=== PATIENT | male | born 1985 | race Caucasian/White ===

== ENCOUNTER 2019-04-21 02:50 | Emergency (ER) | payer OTHER ==
[~2019-04-21] VITALS: Ht 180.3 cm; Wt 113.4 kg
[2019-04-21 03:01] VITALS: BP 139/91
--- NOTE | 2019-04-21 03:09 | ER.PDOC ---
General Chief Complaint: Requesting Medical Care Stated Complaint: ABD PAIN, HBP Time seen by MD: 03:02 Source: patient Exam Limitations: no limitations History of Present Illness Initial Comments Patient c/o epigastric abdominal pain radiating across to right side of abdomen, up into chest and jaws. Onset of pain just QUALITY DIRECTOR. + n/v. No SOB Timing/Duration: 1/2 hour Severity/Quality: moderate, aching Radiation: chest Associated Symptoms: chest pain, nausea/vomiting Allergies: Coded Allergies: No Known Allergies (Unverified , 04/21/19) Vital Signs First Vital Signs Date Time Temp Pulse Resp B/P (MAP) Pulse Ox O2 Delivery O2 Flow Rate FiO2 04/21/19 03:01 98.1 85 16 96 04/21/19 03:01 139/91 (107) Room Air Last Vital Signs Date Time Temp Pulse Resp B/P (MAP) Pulse Ox O2 Delivery O2 Flow Rate FiO2 04/21/19 03:01 98.1 85 16 04/21/19 03:01 139/91 (107) 96 Room Air Past Medical History Medical History: congestive heart failure (states he drank heavily in his 20's resulting in CHF; original EF 20's; now EF 45-50), hypertension Surgical History: other (ortho sx UE) Family History Significant Family History: heart disease (father had ND in his 40's) Social History Drug Use: none Constitutional: no symptoms reported EENTM: no symptoms reported Respiratory: no symptoms reported Cardiovascular: chest pain Gastrointestinal: abdominal pain, nausea, vomiting Musculoskeletal: no symptoms reported Skin: no symptoms reported Physical Exam General Appearance: No Apparent Distress, WD/WN, Obese Respiratory: lungs clear, normal breath sounds, no respiratory distress, no accessory muscle use Cardiovascular: Regular Rate, Rhythm, No Edema Gastrointestinal: Normal Bowel Sounds Extremities: Non-Tender, Normal Inspection Neurologic/Psychiatric: Alert, Normal Mood/Affect, Oriented x 3 Skin: Normal Color, Warm/Dry Lymphatic: No Adenopathy Results/Orders Results/Orders Orders - PRIMO ARIAS DO Cbc With Auto Diff (04/21/19 03:12) Comprehensive Metabolic Panel (04/21/19 03:12) Creatine Kinase (04/21/19 03:12) Creatine Kinase Mb (04/21/19 03:12) Troponin I (04/21/19 03:12) Probnp B-Type [employer] Engineer (04/21/19 03:12) PT (04/21/19 03:12) Partial Thromboplastin Time. (04/21/19 03:12) Helicobacter Pylori (04/21/19 03:12) D-Dimer (04/21/19 03:12) Xr Chest 1v (04/21/19 03:12) Ekg-Routine (04/21/19 03:12) Aspirin (Aspirin) (04/21/19 03:30) Saline Lock (04/21/19 03:12) Ketorolac Tromethamine (Toradol) (04/21/19 04:30) Ketorolac Tromethamine (Toradol) (04/21/19 04:26) Vital Signs Date Time Temp Pulse Resp B/P (MAP) Pulse Ox O2 Delivery O2 Flow Rate FiO2 04/21/19 03:01 98.1 85 16 04/21/19 03:01 98.1 85 16 139/91 (107) 96 Room Air 04/21/19 03:01 98.1 85 16 96 Administered Medications Medications (Trade) Dose Ordered Sig/Melinda Route PRN Reason Start Time Stop Time Status Last Admin Dose Admin Aspirin (Aspirin) 325 mg DAILY PRN PO CHEST PAIN 04/21/19 03:30 05/21/19 03:29 UNV 04/21/19 03:34 325 MG Ketorolac Tromethamine (Toradol) 30 mg STAT ONCE IV 04/21/19 04:30 04/21/19 04:31 DC 04/21/19 04:29 30 MG Laboratory Tests Test 04/21/19 03:23 White Blood Count 9.7 10^3/uL (4.5-11.0) Red Blood Count 5.24 10^6/uL (4.50-5.90) Hemoglobin 15.1 g/dL (13.9-16.3) Hematocrit 43.2 % (37.0-53.0) Mean Corpuscular Volume 82.4 fL (78-100) Mean Corpuscular Hemoglobin 28.8 pg (26-34) Mean Corpuscular Hemoglobin Concent 35.0 g/dL (33-37) Red Cell Distribution Width 12.7 % (11.5-14.5) Platelet Count 245 10^3/uL (150-400) Mean Platelet Volume 9.6 fL (7.8-11.0) Neutrophils (%) (Auto) 53.1 % (41.0-85.0) Lymphocytes (%) (Auto) 32.9 % (24.0-44.0) Monocytes (%) (Auto) 7.0 % (5.0-12.0) Neutrophils # (Auto) 5.2 10^3/uL (1.8-7.7) Lymphocytes # (Auto) 3.2 10^3/uL (1.0-4.8) Monocytes # (Auto) 0.7 10^3/uL (0.3-0.8) Absolute Immature Granulocyte (auto 0.05 10^3 u/L (0-2) Absolute Eosinophils (auto) 0.6 10^3/uL (0.0-0.2) H Immature Granulocytes % 0.50 % (0.00-0.50) Eosinophils % 6.0 % (0.0-5.0) H Basophils % 0.5 % (0.0-0.2) H Basophils # 0.1 10^3/uL (0.0-0.1) Prothrombin Time 9.4 SEC (9.4-11.5) Prothrombin Time INR (Non-Therap) 0.9 Activated Partial Thromboplast Time 24.5 SEC (24.67-30.72) D-Dimer 0.37 mg/L (0.19-0.49) Sodium Level 137 mmol/L (132-145) Potassium Level 3.6 mmol/L (3.6-5.2) Chloride Level 99.0 mmol/L (96-109) Carbon Dioxide Level 28.8 mmol/L (20.0-32) Anion Gap 12.8 Blood Urea Nitrogen 15 mg/dL (7-18) Creatinine 0.97 mg/dL (0.59-1.40) Estimated GFR () 108.5 (>/=60) Est GFR (CKD-EPI)(Non-Afr Malagasy) 89.7 (>/=60) BUN/Creatinine Ratio 15.0 Glucose Level 104 mg/dL (70-110) Calcium Level 9.2 mg/dL (8.4-10.5) Total Bilirubin 0.2 mg/dL (0.2-1.0) Aspartate Amino Transferase (AST) 34 U/L (0-35) Alanine Aminotransferase (ALT) 88 U/L (12-78) H Alkaline Phosphatase 85 U/L (50-136) Total Creatine Kinase 104 U/L (39-308) Creatine Kinase MB 0.9 ng/mL (0.5-3.6) Troponin I < 0.02 ng/mL (0.00-0.05) Pro-B-Type Natriuretic Peptide 5 pg/mL (0-125) Total Protein 7.5 g/dL (6.4-8.2) Albumin 3.9 g/dL (3.4-5.0) Globulin 3.6 Helicobacter pylori Screen NEGATIVE (NEGATIVE) Progress Progress all cardiac markers have returned normal; patient's description of symptoms more mimics gallbladder (food aggrevates, RUQ focus, nausea) EKG/XRAY/CT/US EKG: NSR, no ST T wave changes XRAY: chest (no edema, infiltrate or cardiomegaly seen) Course Vitals & review Data Vital Sign - Last 24 Hours 04/21/19 04/21/19 04/21/19 03:01 03:01 03:01 Temp 98.1 98.1 98.1 Pulse 85 85 85 Resp 16 16 16 B/P (MAP) 139/91 (107) Pulse Ox 96 96 O2 Delivery Room Air Laboratory Tests Test 04/21/19 03:23 White Blood Count 9.7 10^3/uL Red Blood Count 5.24 10^6/uL Hemoglobin 15.1 g/dL Hematocrit 43.2 % Mean Corpuscular Volume 82.4 fL Mean Corpuscular Hemoglobin 28.8 pg Mean Corpuscular Hemoglobin Concent 35.0 g/dL Red Cell Distribution Width 12.7 % Platelet Count 245 10^3/uL Mean Platelet Volume 9.6 fL Neutrophils (%) (Auto) 53.1 % Lymphocytes (%) (Auto) 32.9 % Monocytes (%) (Auto) 7.0 % Neutrophils # (Auto) 5.2 10^3/uL Lymphocytes # (Auto) 3.2 10^3/uL Monocytes # (Auto) 0.7 10^3/uL Absolute Immature Granulocyte (auto 0.05 10^3 u/L Absolute Eosinophils (auto) 0.6 10^3/uL Immature Granulocytes % 0.50 % Eosinophils % 6.0 % Basophils % 0.5 % Basophils # 0.1 10^3/uL Prothrombin Time 9.4 SEC Prothrombin Time INR (Non-Therap) 0.9 Activated Partial Thromboplast Time 24.5 SEC D-Dimer 0.37 mg/L Sodium Level 137 mmol/L Potassium Level 3.6 mmol/L Chloride Level 99.0 mmol/L Carbon Dioxide Level 28.8 mmol/L Anion Gap 12.8 Blood Urea Nitrogen 15 mg/dL Creatinine 0.97 mg/dL Estimated GFR () 108.5 Est GFR (CKD-EPI)(Non-Afr Malagasy) 89.7 BUN/Creatinine Ratio 15.0 Glucose Level 104 mg/dL Calcium Level 9.2 mg/dL Total Bilirubin 0.2 mg/dL Aspartate Amino Transf (AST/SGOT) 34 U/L Alanine Aminotransferase (ALT/SGPT) 88 U/L Alkaline Phosphatase 85 U/L Total Creatine Kinase 104 U/L Creatine Kinase MB 0.9 ng/mL Troponin I < 0.02 ng/mL Pro-B-Type Natriuretic Peptide 5 pg/mL Total Protein 7.5 g/dL Albumin 3.9 g/dL Globulin 3.6 Helicobacter pylori Screen NEGATIVE Current Medications Medications (Trade) Dose Ordered Sig/Melinda PRN Reason Start Time Stop Time Status Last Admin Aspirin (Aspirin) 325 mg DAILY PRN CHEST PAIN 04/21/19 03:30 05/21/19 03:29 UNV 04/21/19 03:34 Vital Sign - Last 24 Hours 04/21/19 04/21/19 04/21/19 03:01 03:01 03:01 Temp 98.1 98.1 98.1 Pulse 85 85 85 Resp 16 16 16 B/P (MAP) 139/91 (107) Pulse Ox 96 96 O2 Delivery Room Air Laboratory Tests Test 04/21/19 03:23 White Blood Count 9.7 10^3/uL Red Blood Count 5.24 10^6/uL Hemoglobin 15.1 g/dL Hematocrit 43.2 % Mean Corpuscular Volume 82.4 fL Mean Corpuscular Hemoglobin 28.8 pg Mean Corpuscular Hemoglobin Concent 35.0 g/dL Red Cell Distribution Width 12.7 % Platelet Count 245 10^3/uL Mean Platelet Volume 9.6 fL Neutrophils (%) (Auto) 53.1 % Lymphocytes (%) (Auto) 32.9 % Monocytes (%) (Auto) 7.0 % Neutrophils # (Auto) 5.2 10^3/uL Lymphocytes # (Auto) 3.2 10^3/uL Monocytes # (Auto) 0.7 10^3/uL Absolute Immature Granulocyte (auto 0.05 10^3 u/L Absolute Eosinophils (auto) 0.6 10^3/uL Immature Granulocytes % 0.50 % Eosinophils % 6.0 % Basophils % 0.5 % Basophils # 0.1 10^3/uL Prothrombin Time 9.4 SEC Prothrombin Time INR (Non-Therap) 0.9 Activated Partial Thromboplast Time 24.5 SEC D-Dimer 0.37 mg/L Sodium Level 137 mmol/L Potassium Level 3.6 mmol/L Chloride Level 99.0 mmol/L Carbon Dioxide Level 28.8 mmol/L Anion Gap 12.8 Blood Urea Nitrogen 15 mg/dL Creatinine 0.97 mg/dL Estimated GFR () 108.5 Est GFR (CKD-EPI)(Non-Afr Malagasy) 89.7 BUN/Creatinine Ratio 15.0 Glucose Level 104 mg/dL Calcium Level 9.2 mg/dL Total Bilirubin 0.2 mg/dL Aspartate Amino Transf (AST/SGOT) 34 U/L Alanine Aminotransferase (ALT/SGPT) 88 U/L Alkaline Phosphatase 85 U/L Total Creatine Kinase 104 U/L Creatine Kinase MB 0.9 ng/mL Troponin I < 0.02 ng/mL Pro-B-Type Natriuretic Peptide 5 pg/mL Total Protein 7.5 g/dL Albumin 3.9 g/dL Globulin 3.6 Helicobacter pylori Screen NEGATIVE Current Medications Medications (Trade) Dose Ordered Sig/Melinda PRN Reason Start Time Stop Time Status Last Admin Aspirin (Aspirin) 325 mg DAILY PRN CHEST PAIN 04/21/19 03:30 05/21/19 03:29 UNV 04/21/19 03:34 Departure Time of Disposition: 04:40 Disposition: 01 HOME, SELF-CARE Impression: Primary Impression: Abdominal pain Condition: Improved Patient Instructions: Abdominal Pain Referrals: PCP,UNKNOWN (PCP) PRIMARY CARE PROVIDER Additional Instructions: Follow up with your doctor as scheduled for EGD and other studies. Avoid spicy or greasy/fatty foods. Return to ER if you have chest pain, difficulty breathing or any other concerns. Of work today, 04/21/2019. Duration or Time Spent with Pa: 1 hour 45 min Return to Work/School Can a patient return to work?: Yes Problem Qualifiers Primary Impression: Abdominal pain Abdominal location: right upper quadrant Qualified Codes: R10.11 - Right upper quadrant pain PRIMO ARIAS DO Apr 21, 2019 03:09
--- NOTE | 2019-04-21 03:17 | PCM.EKG ---
[facility] Test Date: 2019-04-21 Test Time: 03:02:59 Pat Name: LAYLA CRUZ [facility]: [id number] Room: Gender: M Discharge Coordinator: DARÍO : 1985 Requested By: PRIMO DOUGLAS Order Number: [id number] Reading MD: Mary Lou Douglas Measurements Intervals [place] Rate: 89 P: 9 DE: 178 QRS: 4 QRSD: 103 T: 11 QT: 355 QTc: 432 Interpretive Statements Sinus rhythm Borderline T abnormalities, anterior leads Baseline wander in lead(s) V1,V2,V3,V4,V5,V6 No previous ECG available for comparison Electronically Signed On 04-24-2019 6:15:56 FABRIC STRETCHER by Mary Lou Douglas Please click the below link to view image of tracing.
[2019-04-21 03:26] LABS: BASOPHIL # 0.1 10^3/uL (0.0-0.1); BASOPHIL % 0.5 % (0.0-0.2); EOSINOPHIL # 0.6 10^3/uL (0.0-0.2); LYMPHOCYTES # 3.2 10^3/uL (1.0-4.8); LYMPHOCYTES % 32.9 % (24.0-44.0); MEAN CORP HGB 28.8 pg (26-34); MONOCYTES # 0.7 10^3/uL (0.3-0.8); NEUTROPHIL # 5.2 10^3/uL (1.8-7.7); NEUTROPHILS % 53.1 % (41.0-85.0); RED CELL DISTRIBUTION WIDTH 12.7 % (11.5-14.5)
[2019-04-21] MEDS ORDERED: ASPIRIN ONE (03:28)
[2019-04-21] MEDS ORDERED: ASPIRIN PO PRN (03:30)
--- NOTE | 2019-04-21 03:54 | DIREP ---
PROCEDURE:CHEST 1 VIEW COMPARISON:None. INDICATIONS:chest pain FINDINGS: LUNGS/PLEURA:No significant pulmonary parenchymal abnormalities. No effusions. VASCULATURE:Normal. Unremarkable pulmonary vasculature. CARDIAC:Normal. No cardiac silhouette abnormality or cardiomegaly. MEDIASTINUM:Normal. No visible mass or adenopathy. BONES:Normal. No fracture or visible bony lesion. OTHER:Negative. CONCLUSION:No infiltrate, no effusion, no pneumothorax. Dictated by: Ekaterina Germain MD on 04/21/2019 at 03:52 AM
[2019-04-21 04:08] LABS: ALANINE AMINOTRANSFERASE(ML) 88 U/L (12-78); ALKALINE PHOSPHATASE 85 U/L (50-136); ASPARTATE AMINO TRANSFERASE 34 U/L (0-35); CALCIUM 9.2 mg/dL (8.4-10.5); CARBON DIOXIDE 28.8 mmol/L (20.0-32); GLUCOSE 104 mg/dL (70-110)
[2019-04-21] MEDS ORDERED: TORADOL ONE (04:26)
[2019-04-21 04:30] VITALS: BP 142/79
[2019-04-21] MEDS ORDERED: TORADOL IV ONE (04:30)
--- NOTE | 2019-04-21 04:35 | NUR ---
IV DC'D TIP INTACT, NO BLEEDING
== END 2019-04-21 04:42 | disposition home or self-care (01) ==
LOC: ER 02:50
DX: R10.11 Right upper quadrant pain (principal); I11.0 Hypertensive heart disease with heart failure; I50.9 Heart failure, unspecified; Z79.1 Long term (current) use of non-steroidal anti-inflammatories (NSAID); Z79.82 Long term (current) use of aspirin; Z82.49 Family history of ischemic heart disease and other diseases of the circulatory system
CPT/HCPCS: 36415; 71045; 80053; 82550; 82553; 83880; 84484; 85025; 85379; 85610; 85730; 86677; 93005; 96374; 99285; J1885